=== PATIENT | male | born 1970 | race Caucasian/White ===

== ENCOUNTER 2016-09-27 08:19 | Emergency (ER) | payer SELFPAY ==
[~2016-09-27] VITALS: Ht 180.3 cm; Wt 93.0 kg
[~2016-09-27 08:19] MED LIST: FLEXERIL10 MG PO; HYCODAN SYRUP480 ML PO; MOTRIN800 MG PO; NOHOMEMEDS; PREDNISONE20 MG PO; ULTRAM50 MG PO; ZITHROMAX Z-PA250 MG PO
[2016-09-27] MEDS ORDERED: TRAMADOL HCL50 MG PO (10:09)
[2016-09-27] MEDS ORDERED: NAPROSYN500 MG PO (10:09)
[2016-09-27] MEDS ORDERED: PEN-VEE K,VEET500 MG PO (10:09)
[2016-09-27 10:17] VITALS: BP 139/94
== END 2016-09-27 10:18 | disposition home or self-care (01) ==
LOC: EME 08:19
PROC: 0C95XZZ Drainage of Upper Gingiva, External Approach (ICD-10-PCS; principal; 2016-09-27)
DX: K04.7 Periapical abscess without sinus (principal); S02.5XXA Fracture of tooth (traumatic), initial encounter for closed fracture; F17.200 Nicotine dependence, unspecified, uncomplicated
CPT/HCPCS: 99281; 99283

== ENCOUNTER 2017-03-03 03:46 | Emergency (ER) | payer OTHER ==
[~2017-03-03] VITALS: Ht 180.3 cm; Wt 89.3 kg
[~2017-03-03 03:46] MED LIST changes: +NAPROSYN500 MG PO; +PEN-VEE K,VEET500 MG PO; +TRAMADOL HCL50 MG PO
[2017-03-03] MEDS ORDERED: MOTRIN800 MG PO (04:46)
[2017-03-03] MEDS ORDERED: CLEOCIN300 MG PO (04:46)
[2017-03-03 04:57] VITALS: BP 136/76
== END 2017-03-03 04:57 | disposition home or self-care (01) ==
LOC: EME 03:46 → EXP 03:46
PROC: 0C95XZZ Drainage of Upper Gingiva, External Approach (ICD-10-PCS; principal; 2017-03-03)
DX: K04.7 Periapical abscess without sinus (principal); K02.9 Dental caries, unspecified; F17.200 Nicotine dependence, unspecified, uncomplicated
CPT/HCPCS: 99281; 99284

== ENCOUNTER 2017-10-22 12:00 | Emergency (ER) | payer OTHER ==
[~2017-10-22] VITALS: Ht 182.9 cm; Wt 88.9 kg
[~2017-10-22 12:00] MED LIST changes: +CLEOCIN300 MG PO
[2017-10-22 14:49] VITALS: BP 128/82
== END 2017-10-22 14:54 | disposition home or self-care (01) ==
LOC: EME 12:00
PROC: 0C9WXZ0 Drainage of Upper Tooth, External Approach, Single (ICD-10-PCS; principal; 2017-10-22)
DX: K04.7 Periapical abscess without sinus (principal); F17.200 Nicotine dependence, unspecified, uncomplicated; Z88.0 Allergy status to penicillin
CPT/HCPCS: 99281; 99283

== ENCOUNTER 2017-11-02 18:14 | Emergency (ER) | payer OTHER ==
[~2017-11-02] VITALS: Ht 182.9 cm; Wt 98.1 kg
[2017-11-02 19:54] LABS: HEMATOCRIT 44.5 % (38.0-50.0); HEMOGLOBIN 15.5 G/DL (12.5-16.6); MCH 30.6 PG (29.0-34.0); MCHC 34.8 G/DL (30.0-36.0); MCV 87.9 FL (86-99); PLATELET COUNT 221 K/uL (156-360); RBC DIS.WIDTH-CV 12.1 % (11.8-14.6); RED BLOOD COUNT 5.06 M/uL (4.00-5.50); WHITE BLOOD COUNT 10.2 K/uL (4.1-10.2)
[2017-11-02 20:04] LABS: CHLORIDE 104 mEq/L (99-109); POTASSIUM 4.2 mEq/L (3.7-5.4); SODIUM 141 mEq/L (136-147)
[2017-11-02 20:06] LABS: GLUCOSE 97 mg/dL (70-99)
[2017-11-02 20:10] LABS: CREATININE 1.1 mg/dL (0.6-1.3); GFR ESTIMATE (CALCULATED) > 59 mL/min/ (58.99-99999); UREA NITROGEN (BUN) 23 mg/dL (9-23)
[2017-11-02] MEDS ORDERED: MOTRIN800 MG PO (21:03)
[2017-11-02] MEDS ORDERED: PEN-VEE K,VEET500 MG PO (21:03)
[2017-11-02 21:23] VITALS: BP 146/96
== END 2017-11-02 21:25 | disposition home or self-care (01) ==
LOC: EME 18:14
PROVIDERS: Nurse Practitioner Family
DX: R22.0 Localized swelling, mass and lump, head (principal); K13.79 Other lesions of oral mucosa; R53.1 Weakness; R53.83 Other fatigue; F17.200 Nicotine dependence, unspecified, uncomplicated; Z87.442 Personal history of urinary calculi
CPT/HCPCS: 70491; 80048; 83605; 85027; 87040; 99281; 99285; J7120